=== PATIENT | female | born 1965 | race Caucasian/White ===

== ENCOUNTER 2025-01-26 12:30 | Emergency (ER) | payer OTHER ==
[~2025-01-26] VITALS: Ht 167.6 cm; Wt 86.2 kg
[2025-01-26] MEDS ORDERED: KETOROLAC TROMETHAMINE 15 MG/ML VIAL ONE (14:40)
[2025-01-26] MEDS ORDERED: CYCLOBENZAPRINE 10 MG TABLET ONE (14:40)
[2025-01-26] MEDS ORDERED: ACETAMINOPHEN ES 500 MG TABLET ONE (14:40)
[2025-01-26] MEDS: CYCLOBENZAPRINE 10 MG TABLET PO ONE (14:51)
[2025-01-26] MEDS: KETOROLAC TROMETHAMINE 15 MG/ML VIAL IM ONE (14:51)
[2025-01-26] MEDS: ACETAMINOPHEN ES 500 MG TABLET PO ONE (14:51)
[2025-01-26] MEDS ORDERED: CYCL10TA9 PO (14:53)
[2025-01-26] MEDS ORDERED: ACET-2030 PO (14:53)
[2025-01-26 15:23] VITALS: BP 140/85; TEMP 98.5; O2SAT 98
== END 2025-01-26 15:16 | disposition home or self-care (01) ==
LOC: ER 12:32
DX: S39.012A Strain of muscle, fascia and tendon of lower back, initial encounter (principal); M54.16 Radiculopathy, lumbar region; Z96.643 Presence of artificial hip joint, bilateral; X58.XXXA Exposure to other specified factors, initial encounter; Y93.89 Activity, other specified; Y92.89 Other specified places as the place of occurrence of the external cause; Y99.8 Other external cause status
CPT/HCPCS: 99283; 96372; 72170; J1885